=== PATIENT | female | born 1960 | race Two or more races ===

== ENCOUNTER 2023-09-06 16:41 | Outpatient (CLI) | payer OTHER | END 2023-09-06 16:44 | disposition home or self-care (01) | LOC: SONOGRAMA 16:41 | PROVIDERS: ATTEND Pathology Anatomic Pathology & Clinical Pathology | DX: D44.0 Neoplasm of uncertain behavior of thyroid gland (principal); E03.9 Hypothyroidism, unspecified ==

== ENCOUNTER 2025-02-26 10:51 | Outpatient (CLI) | payer OTHER | END 2025-02-26 10:53 | disposition home or self-care (01) | LOC: SONOGRAMA 10:51 | PROVIDERS: ATTEND Pathology Anatomic Pathology & Clinical Pathology | DX: D34 Benign neoplasm of thyroid gland (principal); E06.3 Autoimmune thyroiditis; E04.2 Nontoxic multinodular goiter ==